=== PATIENT | female | born 1945 | race Caucasian/White ===

== ENCOUNTER → 2017-08-03 | Outpatient (CLI) | payer OTHER ==
[~2017-08-03] MED LIST: ALLO100T PO; ASPI325T33 PO; COMMODE 3-IN-11 MIS; HYDR-3580 PO; HYDR-3583 PO; LOVA20TA PO; LOVA40TA PO; OMEP20TA93 PO; OXYB5TAB PO; RANI300T PO; TRAM50 PO; VITA1000 PO; VITA100018 PO; VITA100T10 PO; VITA200C3 PO; VITA400C70 PO; WALKER WHEELS/F1 MIS; oxyCODONE SR PO
[2017-08-03 11:34] LABS: BLOOD, URINE NEG (NEG); GLUCOSE,URINE NEG (NEG); KETONE, URINE NEG (NEG); NITRITE,URINE NEG (NEG); URINE COLOR LIGHT-YELLOW (YELLW/STRAW)
[2017-08-03 12:02] LABS: COMMENT (UR) CATH-CULT NOT IND; CULTURE IF INDICATED CATH CULTURE NOT IND; RBC, URINE 0 /hpf (0-3); WBC, URINE 0-2 /hpf (0-5)
== END ==
LOC: CPRE 09:04
PROVIDERS: ATTEND Orthopaedic Surgery
DX: Z01.812 Encounter for preprocedural laboratory examination (principal); M17.12 Unilateral primary osteoarthritis, left knee
CPT/HCPCS: 81001

== ENCOUNTER 2017-08-12 05:35 | Inpatient (IN) | payer OTHER, MEDICARE ==
--- NOTE | 2017-08-11 18:54 | MH ---
cc: MARQUES FROST DATE OF ADMISSION 08/12/2017 DATE OF 1945 ADMISSION DIAGNOSIS End-stage osteoarthritis left knee. PROPOSED SURGERY Left total knee replacement arthroplasty. HISTORY The patient has had problem with his knee for over two years treated with NSAIDs and cortisone shots and also viscosupplementation. She presented recently complaining of increasing pain and now instability and therefore being admitted for total knee replacement arthroplasty. PERSONAL HISTORY She is retired. She is a nonsmoker. She stopped smoking in 2012. ALLERGIES No known allergies. PAST HISTORY Multiple surgeries to the neck and back and some chronic pain. She has also had arthroscopic surgery to the left knee. MEDICATIONS 1. Allopurinol. 2. Lovastatin. 3. Oxybutynin. 4. Omeprazole. 5. [place]. 6. Zantac. PHYSICAL EXAMINATION GENERAL: Physical examination reveals a white female who is 5 feet 4-1/2 inches tall and 190 pounds. She limps a little bit on the left leg. There is varus deformity of the left leg and some terminal loss of extension in the range of about 4-5 degrees. Flexion could be done past 90 degrees. There is no obvious warmth or effusion. HEENT: Normocephalic. Pupils react to light. Face symmetrical. HEART: Regular rhythm. No murmurs. LUNGS: Clear to auscultation. ABDOMEN: Soft and supple. EXTREMITIES: Left lower extremity reveals good skin condition. There are palpable pedal pulses. No distal edema. She moves her toes well. IMAGING X-rays revealed [id number] medial compartment with mild changes in the lateral compartment and patellofemoral joint. The patient had abnormal UA and C&S but has responded to oral antibiotics and the urinalysis repeated last Thursday is normal with no evidence of infection. The patient never had any clinical symptoms with it. The nature of the problem, the nature of the treatment, potential risks as well as complications, the expected results of total knee replacement arthroplasty have been discussed in detail. Detailed informed consent documented on the office record. MD DORA Pool/BRISEIDA /6:18 PM /6:38 PM
[~2017-08-12] VITALS: Ht 163.8 cm; Wt 84.6 kg
[~2017-08-12 05:35] MED LIST changes: -ASPI325T33 PO; -COMMODE 3-IN-11 MIS; -HYDR-3580 PO; -LOVA20TA PO; -TRAM50 PO; -VITA100018 PO; -VITA400C70 PO; -WALKER WHEELS/F1 MIS; -oxyCODONE SR PO
[2017-08-12] MEDS ORDERED: TOBRAMYCIN 1200 MG VIAL (ortho-sterile core) ONE (06:06)
[2017-08-12] MEDS ORDERED: GENTAMICIN SULFATE 80 MG/2 ML VIAL ONE (06:07)
[2017-08-12] MEDS ORDERED: POVIDONE IODINE 5% (ANTISEPSIS KIT) 4 APPLICATIONS EACH NARE PRN (06:30)
[2017-08-12] MEDS ORDERED: LACTATED RINGER'S 1000 ML IV PRN (06:30)
[2017-08-12] MEDS ORDERED: TRANEXAMIC ACID INJ 850 MG in SODIUM CHLORIDE 0.9% INJ 100 ML IV SCH ×4 (06:30)
[2017-08-12] MEDS ORDERED: CHLORHEXIDINE GLUCONATE 2 % 1 PACK (2 CLOTHS) TOPICAL PRN (06:30)
[2017-08-12] MEDS ORDERED: INSULIN HUMAN REGULAR 1,000 UNITS/10 ML VIAL SQ PRN (06:30)
[2017-08-12] MEDS ORDERED: VANCOMYCIN 1000 MG/NS 250 ML (for <70 kg) IV SCH ×2 (06:30)
[2017-08-12] MEDS ORDERED: EXPAREL PERI-ARTICULAR INJECTION (TOTAL VOL. 100 ML) P-ARTICULR SCH ×2 (06:30)
[2017-08-12] MEDS ORDERED: POVIDONE IODINE 7.5% SCRUB 118 ML BOTTLE TOPICAL SCH (06:30)
[2017-08-12] MEDS ORDERED: METOPROLOL TARTRATE 25 MG TAB PO PRN (06:30)
[2017-08-12] MEDS ORDERED: SODIUM CHLORID 0.9% 500 ML IV PRN (06:30)
[2017-08-12] MEDS ORDERED: ceFAZolin 2 GM PREMIX 50 ML IV SCH (07:00)
[2017-08-12] MEDS ORDERED: BUPIVACAINE LIPOSOME PF 1.3% 20 ML VIAL ONE (07:14)
[2017-08-12] MEDS ORDERED: PROPOFOL 200 MG/20 ML AMP ONE (09:16)
[2017-08-12] MEDS ORDERED: CEFAZOLIN INJ 2,000 MG in SODIUM CHLORIDE 0.9% INJ 100 ML IV SCH (10:00)
[2017-08-12] MEDS ORDERED: ONDANSETRON HCL 4 MG/2 ML VIAL IVP PRN (10:00)
[2017-08-12] MEDS ORDERED: NALOXONE HCL 0.4 MG/ML AMP IV PUSH PRN (10:00)
[2017-08-12] MEDS ORDERED: TRANEXAMIC ACID INJ 0 MG in SODIUM CHLORIDE 0.9% INJ 100 ML IV SCH (10:00)
[2017-08-12] MEDS ORDERED: TEMAZEPAM 15 MG CAP PO PRN (10:00)
[2017-08-12] MEDS ORDERED: KETOROLAC TROMETHAMINE 30 MG/ML (IVP) VIAL IVP SCH (10:00)
[2017-08-12] MEDS ORDERED: Post-op Orders (for Pharmacy) MISC XX ONE (10:00)
[2017-08-12] MEDS ORDERED: traMADol HCL 50 MG TAB PO PRN (10:00)
[2017-08-12] MEDS ORDERED: ACETAMINOPHEN/HYDROcodone 325 MG/5 MG TAB PO PRN (10:00)
[2017-08-12] MEDS ORDERED: diphenhydrAMINE HCL 50 MG/ML VIAL IV PUSH PRN (10:00)
[2017-08-12] MEDS: SODIUM CHLOR 0.9% 1000 ML INJ 1,000 ML IV SCH ×2 (10:31→22:04)
--- NOTE | 2017-08-12 10:44 | MP ---
cc: [facility] DATE OF SURGERY: 08/12/2017 PREOPERATIVE DIAGNOSIS: Osteoarthritis left knee. POSTOPERATIVE DIAGNOSIS: Osteoarthritis left knee. OPERATIVE PROCEDURE: Total knee replacement arthroplasty left knee using [employer] cemented components - femur 65 mm, tibia 67 mm with I-beam stem, patella extra small, tibial insert 10 mm flat. SURGEON: Dr. Blanco. ANESTHESIA: Spinal. TECHNIQUE: After induction of spinal anesthesia and adductor block the left lower extremity was thoroughly prepped with alcohol and ChloraPrep and draped in routine fashion. After application of Esmarch bandage, the tourniquet was inflated to 300 mmHg. A vertical incision was made slightly medial to midline, deepened through the subcutaneous tissue, down to fascia. A medial parapatellar arthrotomy incision was carried out. Limited release of the medial structures were carried out from the medial tibia, excising osteophytes at the same time. The femoral canal was opened anterior to the posterior cruciate ligament and the distal femoral cutting guide set at 6-degrees was used to make the distal femoral cut. The external tibial guide was used to make the tibial cut referencing 6 mm from the lowermost portion of the medial tibial plateau. After placing appropriate retractors, the AP guide was used following the AP condylar axis as well as referencing the Whitesides line and a 65-mm block was used for AP and chamfer cuts. This did result in some notching of the lateral cortex but it is within acceptable limits. Posterior osteophytes were checked. Debridement of the joint was carried out. The tibia was prepared for the tibial tray. Alignment of the tibia was checked and appears to be good. Trial implants were now placed in the femur and the knee cycled with a 10-mm spacer and everything looks good. Prior to this, we did use a spacer block to check and then did some cleanup cuts on the posterior medial femoral condyle and the lateral tibial plateau. The patella was measured and the undersurface of the patella was excised and the patella prepared for an extra small patellar component. All trials were placed and the patella tracks good. Drill holes are made for the pegs of the femoral implant. Rotation was marked. Trial implants were removed followed by lavage and drying of the bony surfaces. The femoral canal was plugged with bone. Dilute Exparel solution was injected articularly. Using 2 units of Simplex cement with 1200 mg of tobramycin in it, the tibial tray was placed first, impacted, all excess cement removed, followed by the femoral implant and then extending the knee with a 10-mm insert. Once cement solidified, the joint was checked. Any loose cement or bone were removed. The knee looks good with a 10-mm insert and therefore a 10-mm spacer was placed and clipped. The patella tracks well. A Hemovac drain was introduced. The tourniquet was released after implants placed. Hemostasis obtained with cautery. The joint was thoroughly lavaged and suctioned out and then the knee was closed in mid-flexion with three interrupted #2 Vicryl sutures and the rest closed with #2 Quill. The subcutaneous tissue was closed with 2-0 Vicryl and the skin with 3-0 subcuticular Quill and Steri-Strips. A silver-impregnated dressing was placed on the knee and a dressing placed around the drain, wrapped with Sof-Rol and Sharan bandage incorporating an ice bladder. The patient was transferred to the recovery room in satisfactory condition. The patient tolerated the procedure well. TRANSFUSIONS AND COMPLICATIONS: None. POSTOPERATIVE CONDITION: Satisfactory. PROGNOSIS: Good. ESTIMATED BLOOD LOSS: 75 cc. TOURNIQUET TIME: 70 minutes. MD DORA Pool/CLAYTON /10:11 AM /10:17 AM
[2017-08-12] MEDS ORDERED: VANCOMYCIN INJ 1 GM in SODIUM CHLOR 0.9% 250 ML INJ 250 ML IV SCH (11:00)
--- NOTE | 2017-08-12 11:22 | RADRPT ---
EXAM DATE/TIME: 08/12/2017 10:49 [facility] COMPARISON: No previous studies available for comparison. INDICATIONS : Post op left knee MEDICAL HISTORY : None. SURGICAL HISTORY : None. ENCOUNTER: Initial ACUITY: 1 day PAIN SCORE: Non-responsive. LOCATION: Left knee FINDINGS: AP and lateral views of the knee following arthroplasty reveals a prosthesis in anatomic alignment. F racture is not appreciated. Surgical drain is evident CONCLUSION: Status post total knee arthroplasty. Hao Goins MD FACR Board Certified Radiologist. This report was verified electronically.
[2017-08-12] MEDS ORDERED: MIDAZOLAM HCL 2 MG/2 ML VIAL IV ONE (12:00)
[2017-08-12] MEDS ORDERED: PROPOFOL 200 MG/20 ML AMP IV ONE (12:00)
[2017-08-12] MEDS ORDERED: LACTATED RINGER'S 1000 ML INJ 1,000 ML IV ONE (12:00)
[2017-08-12] MEDS ORDERED: SODIUM CHLORIDE 0.9% 20 ML VIAL IV ONE (12:00)
[2017-08-12] MEDS: MORPHINE SULFATE 30 MG/30 ML PCA IV SCH ×2 (12:10→20:23)
[2017-08-12] MEDS ORDERED: SODIUM CHLORIDE 0.9% FLUSH 10 ML FLUSH IV FLUSH PRN (12:15)
[2017-08-12] MEDS ORDERED: *morphine SULFATE 8 MG/ML PERIprocedure ONLY ONE (12:36)
[2017-08-12] MEDS: ceFAZolin 2 GM PREMIX 50 ML IV SCH ×2 (13:27→22:03)
[2017-08-12 13:40] VITALS: BP 150/63; PULSE 75; RESP 16; TEMP 96.2; O2SAT 92
[2017-08-12] MEDS ORDERED: DO NOT ADM ANY ANTICOAGULANT DRUGS PRN (13:45)
[2017-08-12] MEDS: PCA - TOTAL MG MORPHINE DELIVERED PER SHIFT SCH ×2 (14:00→20:27)
[2017-08-12 15:32] VITALS: BP 155/68; PULSE 81; RESP 16; TEMP 97; O2SAT 95
[2017-08-12] MEDS ORDERED: VANCOMYCIN 1,000 MG/NS 250 ML IV ONE ×2 (20:00)
[2017-08-12 20:15] VITALS: BP 157/69; PULSE 88; RESP 18; TEMP 98.6; O2SAT 100
[2017-08-12] MEDS: PANTOPRAZOLE SOD 20 MG DELAYED RELEASE TAB PO SCH (20:21)
[2017-08-12] MEDS: SODIUM CHLORIDE 0.9% FLUSH 10 ML FLUSH IV FLUSH SCH (20:23)
[2017-08-12] MEDS ORDERED: ASPIRIN 325 MG TAB PO SCH (21:00)
[2017-08-12] MEDS: TOLTERODINE TARTRATE 2 MG CAP LA PO SCH (22:03)
[2017-08-13] VITALS (9 sets, daily range): BP systolic 122–179; BP diastolic 49–96; PULSE 50–101; RESP 18–20; TEMP 95.9–100.7; O2SAT 93–99
[2017-08-13 05:34] LABS: HEMATOCRIT 36.4 % (35.0-46.0); REVIEW FLAG FINAL
[2017-08-13 05:50] LABS: BICARBONATE 23.5 MEQ/L (21.0-32.0); POTASSIUM 3.8 MEQ/L (3.5-5.1)
[2017-08-13] MEDS: PCA - TOTAL MG MORPHINE DELIVERED PER SHIFT SCH ×2 (05:57→14:00)
[2017-08-13] MEDS: ceFAZolin 2 GM PREMIX 50 ML IV SCH (05:57)
--- NOTE | 2017-08-13 07:41 | PD.ORT.PN ---
Subjective Post Op Day #: 1 Pain Scale: 10 Subjective Remarks ' I thought surgery suppose to make pain better, I have more pain than before surgery " Range of Motion Keeping knee in 15 degrees flexion. Worked withquads, able to do sets well but not SLR Distance Walked Has been to bathroom Objective Vitals Last 72 hours Impressions Knee X-Ray 08/12/17 0957 Signed Impressions: Service Date/Time: Saturday, August 12, 2017 10:49 - CONCLUSION: Status post total knee arthroplasty. Hao Goins MD Vital Signs Date Time Temp Pulse Resp B/P (MAP) Pulse Ox O2 Delivery O2 Flow Rate FiO2 08/13/17 05:57 18 08/13/17 04:10 99.4 99 18 146/69 (94) 94 08/13/17 00:05 99.0 101 18 132/49 (76) 98 08/12/17 20:27 16 08/12/17 20:23 18 08/12/17 20:15 98.6 88 18 157/69 (98) 100 08/12/17 15:32 97.0 81 16 155/68 (97) 95 08/12/17 13:40 96.2 75 16 150/63 (92) 92 08/12/17 13:15 75 16 138/62 (87) 96 Room Air 08/12/17 13:00 87 16 142/66 (91) 96 Room Air 08/12/17 12:45 71 16 156/67 (96) 93 Room Air 08/12/17 12:30 66 16 155/95 (115) 95 Room Air 08/12/17 12:10 16 08/12/17 12:00 63 16 159/68 (98) 97 Room Air 08/12/17 11:45 64 16 143/65 (91) 99 Room Air 08/12/17 11:30 67 16 130/58 (82) 99 Room Air 08/12/17 11:15 61 16 146/67 (93) 98 Room Air 08/12/17 11:00 58 16 149/89 (109) 95 Room Air 08/12/17 10:45 61 16 118/56 (76) 94 Room Air 08/12/17 10:30 96.8 59 16 126/61 (82) 96 Room Air 08/12/17 10:18 58 16 116/54 (74) 98 Room Air I/O 08/12/17 08/12/17 08/12/17 08/13/17 08/13/17 08/13/17 07:00 15:00 23:00 07:00 15:00 23:00 Intake Total 1900 ml 660 ml 1829 ml Output Total 3150 ml 220 ml 150 ml Balance -1250 ml 440 ml 1679 ml Intake Oral 400 ml 360 ml 480 ml IV Total 1500 ml 300 ml 1349 ml Output Urine Total 100 ml Drainage Total 220 ml 150 ml Estimated Blood Loss 50 ml Other 3000 ml # Voids 3 2 # Bowel Movements 0 0 Result Diagram: 08/13/17 0455 08/13/17 0455 Imaging Last 24 hours Impressions Knee X-Ray 08/12/17 0957 Signed Impressions: Service Date/Time: Saturday, August 12, 2017 10:49 - CONCLUSION: Status post total knee arthroplasty. Hao Goins MD Objective Remarks Awake, in pain, moves toes well up and down, Assessment & Plan Ortho Post Op Day #: 1 Problem List: Assessment and Plan Painful because of "chronic pain" and out patient narcotics. To start oxycontin. Leave drain in till this afternoon Instructed importance of working through pain. Ramesh Blanco MD Aug 13, 2017 07:41
[2017-08-13] MEDS: ACETAMINOPHEN 1000 MG/100 ML VIAL IV SCH ×2 (07:51→21:47)
[2017-08-13] MEDS: SODIUM CHLORIDE 0.9% FLUSH 10 ML FLUSH IV FLUSH SCH ×2 (07:52→21:47)
[2017-08-13] MEDS: PRAVASTATIN SOD 40 MG TAB PO SCH (07:52)
[2017-08-13] MEDS: VITAMIN E 400 UNIT CAP PO SCH (07:52)
[2017-08-13] MEDS: CHOLECALCIFEROL (VIT D3) 1000 UNIT TAB PO SCH (07:52)
[2017-08-13] MEDS: ALLOPURINOL 100 MG TAB PO SCH (07:53)
[2017-08-13] MEDS: PYRIDOXINE HCL 50 MG TAB PO SCH (07:53)
[2017-08-13] MEDS: SODIUM CHLOR 0.9% 1000 ML INJ 1,000 ML IV SCH ×2 (08:00→18:00)
[2017-08-13] MEDS ORDERED: PNEUMOCOCCAL POLYVALENT INJ 25 MCG/0.5 ML SYR IM ONE (09:00)
[2017-08-13] MEDS ORDERED: INFLUENZA VIRUS VACCINE (QUADRIVALENT) 0.5 ML SYR IM ONE (09:00)
[2017-08-13] MEDS: oxyCODONE HCL 20 MG CONTROLLED RELEASE TAB PO SCH ×2 (11:21→21:47)
[2017-08-13] MEDS: KETOROLAC TROMETHAMINE 30 MG/ML (IVP) VIAL IV PUSH SCH ×2 (11:22→18:00)
[2017-08-13] MEDS: PANTOPRAZOLE SOD 20 MG DELAYED RELEASE TAB PO SCH (18:00)
[2017-08-13] MEDS: TOLTERODINE TARTRATE 2 MG CAP LA PO SCH (21:47)
[2017-08-13] MEDS: DOCUSATE SODIUM 100 MG CAP PO SCH (21:47)
[2017-08-14] VITALS: BP 146/68; PULSE 107; RESP 19; TEMP 99.4; O2SAT 94
[2017-08-14] MEDS: KETOROLAC TROMETHAMINE 30 MG/ML (IVP) VIAL IV PUSH SCH ×2 (00:38→05:46)
[2017-08-14] MEDS: SODIUM CHLOR 0.9% 1000 ML INJ 1,000 ML IV SCH (04:00)
[2017-08-14] MEDS: CHOLECALCIFEROL (VIT D3) 1000 UNIT TAB PO SCH (07:32)
[2017-08-14] MEDS: ALLOPURINOL 100 MG TAB PO SCH (07:32)
[2017-08-14] MEDS: oxyCODONE HCL 20 MG CONTROLLED RELEASE TAB PO SCH (07:32)
[2017-08-14] MEDS: VITAMIN E 400 UNIT CAP PO SCH (07:32)
[2017-08-14] MEDS: PRAVASTATIN SOD 40 MG TAB PO SCH (07:32)
[2017-08-14] MEDS: DOCUSATE SODIUM 100 MG CAP PO SCH (07:33)
[2017-08-14] MEDS: SODIUM CHLORIDE 0.9% FLUSH 10 ML FLUSH IV FLUSH SCH (07:33)
[2017-08-14] MEDS: PYRIDOXINE HCL 50 MG TAB PO SCH (07:33)
[2017-08-14] MEDS ORDERED: ASPI325T33 PO (07:48)
[2017-08-14] MEDS ORDERED: TRAM50 PO (07:48)
[2017-08-14] MEDS ORDERED: oxyCODONE SR PO (07:48)
--- NOTE | 2017-08-14 07:51 | HHI.FF ---
Face to Face Verification Diagnosis: (1) Total knee replacement status Physical Therapy Gait training Knee: Total knee, Protocol: Left, Full weight bearing Left LE Weight Bearing: WB as tolerated Nursing Nursing: Dressing changes (first dressing change thursdayaug 18, and then QOD with prim[place]) Dressing Changes: Other (rirst dressing change thursdayaug 18, and then qod primapore) I have seen patient Sharyn Serrano on 08/14/17. My clinical findings support the need for the requested home health care services because: Limited ability to care for self I certify that my clinical findings support that this patient is homebound because: Unable to use public transportation Ramesh Blanco MD Aug 14, 2017 07:51
[2017-08-14] MEDS ORDERED: WALKER WHEELS/F1 MIS (07:54)
[2017-08-14] MEDS ORDERED: COMMODE 3-IN-11 MIS (07:54)
[2017-08-14 08:00] VITALS: BP 149/70; PULSE 95; RESP 18; TEMP 99; O2SAT 95
[2017-08-14 09:20] VITALS: O2SAT 95
[2017-08-14 12:00] VITALS: BP 167/77; PULSE 94; RESP 18; TEMP 97; O2SAT 96
--- NOTE | 2017-08-14 15:04 | MD ---
cc: MARQUES FROST ADMISSION DATE: 08/12/2017 DISCHARGE DATE: 08/14/2017 ADMISSION DIAGNOSIS 1. Osteoarthritis left knee 2. Chronic pain because of back and neck problems. DISCHARGE DIAGNOSIS 1. Osteoarthritis left knee 2. Chronic pain because of back and neck problems. HISTORY History consisted of longstanding problem with the knee treated conservatively with injections including viscosupplementation. Failure of conservative treatment prompted admission to the hospital after appropriate preoperative workup and she underwent total knee replacement arthroplasty the day of admission. Postoperative course was surgically uneventful. Because of her chronic pain status, she was put on OxyContin 20 mg q12 which has controlled the pain well. This will also be the discharged medication with supplementation with Tramadol 100 mg three times a day as needed. She also has Hydrocodone 10 at home she can take if needed. She was advised the importance of ice, a large ice bag and exercises. Home health care has been arranged. This patient is low risk for DVT. She is already up and around and she wants to go home and therefore we will put her on aspirin 325 mg b.i.d. for 14 days. Home health care has been arranged. Postoperative laboratory studies and x-rays were all satisfactory. The patient will see me in the office 12 days postop for follow up. MD DORA Pool/JOHN /7:54 AM /2:51 PM
[2017-08-14] MEDS ORDERED: ASPIRIN 325 MG TAB PO SCH (21:00)
== END 2017-08-14 14:25 | disposition home health service (06) | DRG 470 ==
LOC: HSDI 05:35 → N06B 13:39
PROVIDERS: ADMIT Orthopaedic Surgery; ATTEND Orthopaedic Surgery
PROC: 3E0T3BZ Introduction of Anesthetic Agent into Peripheral Nerves and Plexi, Percutaneous Approach (ICD-10-PCS; 2017-08-12)
PROC: 0SRD0J9 Replacement of Left Knee Joint with Synthetic Substitute, Cemented, Open Approach (ICD-10-PCS; principal; 2017-08-12 07:16)
DX: M17.12 Unilateral primary osteoarthritis, left knee (principal); I10 Essential (primary) hypertension; M21.161 Varus deformity, not elsewhere classified, right knee; G89.29 Other chronic pain; E78.5 Hyperlipidemia, unspecified; K21.9 Gastro-esophageal reflux disease without esophagitis; Z87.891 Personal history of nicotine dependence
CPT/HCPCS: 73560; 80048; 85014; 85018; 86850; 86900; 86901; 90471; 90472; 90686; 90732; 94150; C1776; C9290; G0008; G0009; J0131; J0690; J1580; J1885; J2250; J2270; J3010; J3370; J7030; J7050; J7120; Q2038